=== PATIENT | male | born 1995 | race Caucasian/White ===

== ENCOUNTER 2018-08-23 14:40 | Outpatient (CLI) | payer BC ==
[~2018-08-23 14:40] MED LIST: Gadobenate Dimeglumine 529 MG/1 ML (20ML VIAL) ONE
--- NOTE | 2018-08-23 16:32 | MRI ---
MRI BRAIN WITH AND WITHOUT CONTRAST: Technique: Multiplanar, multisequence MRI images were obtained of the brain. Post contrast images wer e obtained with administration of IV MultiHance. Indications: Vertigo. FINDINGS: Ventricles have normal size and position. No evidence of restricted diffusion. There is no mass or ed juan jose. There is no evidence of white matter abnormality. Internal auditory canals appear unremarkable. No abnormal enhancement identified. Cerebral arteries show expected flow voids. Paranasal sinuses ronal ear clear. There may be mild mucosal edema in the left mastoid air cells as seen on T2 sequence. IMPRESSION: 1. Unremarkable MRI brain. 2. Evidence of mucosal edema in the left mastoid air cells. POS: [facility]
== END 2018-08-23 14:41 | disposition home or self-care (01) ==
LOC: TBSIIMAG 14:40
PROVIDERS: ATTEND Psychiatry & Neurology Neurology
DX: R42 Dizziness and giddiness (principal); R20.1 Hypoesthesia of skin; R60.0 Localized edema
CPT/HCPCS: 70553; A9577